=== PATIENT | male | born 1955 | race Caucasian/White ===

== ENCOUNTER 2018-10-29 11:55 | Emergency (ER) | payer MEDICAID ==
[2018-10-29] MEDS ORDERED: PROPARACAINE 0.5% OPHTH DROPS 15 ML EACHEYE STA (14:16)
[2018-10-29] MEDS ORDERED: DEXAMETHASONE 10 MG/ML VIAL PO STA (14:16)
[2018-10-29] MEDS ORDERED: IPRATROPIUM/ALBUTEROL 3 ML NEB INH STA (14:17)
--- NOTE | 2018-10-29 14:19 | ED Physician Documentation ---
PD HPI URI - Stated complaint Stated Complaint: EYE IRRITATION/SORE THROAT - Chief complaint Chief Complaint: Heent - History obtained from History obtained from: Patient - History of Present Illness Timing - onset: How many days ago (4) Timing duration: Days (4) Timing details: Gradual onset, Still present Associated symptoms: Ear pain, Nasal congestion, Rhinorrhea, Sinus pain, Sore throat, Dry cough, Dyspnea, Other (eye pain irritation) Contributing factors: Sick contact Improves by: Rest, Medication Similar symptoms before: Has not had sx before Recently seen: Not recently seen - Additional information Additional information: 63-year-old male has developed developed some eye irritation about 4 days ago this was followed by a cough and congestion he has some swelling to both of his eyes and some matting to them. He has developed some shortness of breath with this he has had used an inhaler before and he is not using it right now. Review of Systems Constitutional: reports: Myalgias, Fatigue. denies: Fever Eyes: reports: Discharge, Irritation. denies: Decreased vision Ears: reports: Ear pain Nose: reports: Rhinorrhea / runny nose, Congestion Throat: reports: Sore throat Cardiac: denies: Chest pain / pressure, Palpitations Respiratory: reports: Dyspnea, Cough GI: denies: Vomiting PD PAST MEDICAL HISTORY - Present Medications Home Medications: Ambulatory Orders Medication Instructions Recorded Confirmed Albuterol Sulf [Ventolin Hfa 1 - 2 puffs INH Q4HR PRN #1 inhaler 10/29/18 Inhaler] Amox/Clav 875/125 [Augmentin] 1 each PO Q12H #20 tablet 10/29/18 predniSONE [Deltasone] 10 mg PO ONCE #26 tablet 10/29/18 - Allergies Allergies/Adverse Reactions: Allergies Allergy/AdvReac Type Severity Reaction Status Date / Time codeine Allergy Rash Verified 10/29/18 12:40 hydrocodone Allergy Rash Verified 10/29/18 12:40 PD ED PE NORMAL - Vitals Vital signs reviewed: Yes (hypertensive ) - General General: Alert and oriented X 3, No acute distress, Well developed/nourished - HEENT HEENT: Atraumatic, PERRL, EOMI, Other (both TM's are markedly inflamed with loss of landmarks. The pharynx is with swelling and erythema to the uvula. There is no exudate. 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, No motor deficit, No sensory deficit, Normal speech Eye Opening: Spontaneous Motor: Obeys Commands Verbal: Oriented GCS Score: 15 - Psych Psych: Normal mood, Normal affect Results - Vitals Vitals: Vital Signs - 24 hr 10/29/18 10/29/18 12:38 14:33 Temperature 36.8 C Heart Rate 80 98 Respiratory 20 16 Rate Blood Pressure 131/87 H O2 Saturation 95 Oxygen O2 Source Room air - Rads (name of study) chest 2 veiw Radiology: Prelim report reviewed (Impression: Normal two-view chest radiography.), EMP read indepedently, See rad report PD MEDICAL DECISION MAKING - ED course Complexity details: reviewed results, re-evaluated patient, considered differential, d/w patient ED course: 63 y/o male with a cough and congestion has a lot of swelling to his eyes and drainage and he has OM on exam that looks like it would hurt. He is administered decadron and a duoneb as well as drops of proparicaine to the eyes. He has marked improvement with treatment and can now open his eyes and breath. Departure - Departure Disposition: 01 Home, Self Care Clinical Impression: Otitis media Qualifiers: Otitis media type: suppurative Chronicity: acute Laterality: bilateral Recurrence: not specified as recurrent Spontaneous tympanic membrane rupture: without spontaneous rupture Qualified Code(s): H66.003 - Acute suppurative otitis media without spontaneous rupture of ear drum, bilateral Reactive airway disease Qualifiers: Asthma severity: mild Asthma persistence: intermittent Asthma complication type: with acute exacerbation Qualified Code(s): J45.21 - Mild intermittent asthma with (acute) exacerbation Condition: Stable Instructions: ED Reactive Airway Disease, ED Otitis Media Acute Adult Follow-Up: Bon Hagen PA-C [Primary Care Provider] - Prescriptions: Albuterol Sulf [Ventolin Hfa Inhaler] 1 - 2 puffs INH Q4HR PRN #1 inhaler PRN Reason: Shortness Of Air/Wheezing Amox/Clav 875/125 [Augmentin] 1 each PO Q12H #20 tablet predniSONE [Deltasone] 10 mg PO ONCE #26 tablet
--- NOTE | 2018-10-29 15:32 | XRAY Report ---
Reason: cough reduced air movement] Procedure Date: 10/29/2018 Accession Number: [id number] / [id number] Procedure: XR - Chest 2 View X-Ray CPT Code: 74679 FULL RESULT: EXAM: CHEST RADIOGRAPHY EXAM DATE: 10/29/2018 03:18 PM. CLINICAL HISTORY: Cough reduced air movement. COMPARISON: None. TECHNIQUE: 2 views. FINDINGS: Lungs/Pleura: No localized infiltrate, consolidation, effusion, or pneumothorax. Mediastinum: Heart and mediastinal contours are unremarkable. Other: None. IMPRESSION: Normal 2-view chest radiography. RADIA
[2018-10-29 15:52] VITALS: BP 119/82
== END 2018-10-29 15:50 | disposition home or self-care (01) ==
LOC: ED 11:55
DX: H66.003 Acute suppurative otitis media without spontaneous rupture of ear drum, bilateral (principal); J45.21 Mild intermittent asthma with (acute) exacerbation; H57.89 Other specified disorders of eye and adnexa
CPT/HCPCS: 71046; 94640; 99283; J3490

== ENCOUNTER 2018-11-13 14:19 | Outpatient (CLI) | payer MEDICAID | END 2018-11-13 23:59 | disposition home or self-care (01) | LOC: RT.N 14:19 | PROVIDERS: ATTEND Physician Assistant Medical | DX: R07.9 Chest pain, unspecified (principal) | CPT/HCPCS: 93005 ==

== ENCOUNTER 2019-05-24 17:55 | Outpatient (CLI) | payer OTHER ==
--- NOTE | 2019-05-26 08:34 | MRI Report ---
Reason: LT SHOULDER PAIN Procedure Date: 05/24/2019 Accession Number: [id number] / [id number] Procedure: MRI - Shoulder LT W/O CPT Code: FULL RESULT: EXAM: LEFT SHOULDER MRI WITHOUT CONTRAST EXAM DATE: 05/24/2019 06:39 PM. CLINICAL HISTORY: Left shoulder pain COMPARISON: None. TECHNIQUE: Multiplanar, multisequence T1-weighted and fluid-sensitive sequences of the shoulder without contrast. Other: None. FINDINGS: Acromioclavicular Region: The acromion is type II. Small foci of subchondral edema at the distal clavicle. No significant osteophyte formation. The coracoacromial and coracoclavicular ligaments are intact. Subacromial-subdeltoid bursitis. Glenohumeral Region: No subluxation. Small effusion. Small foci of subchondral edema at the inferior glenoid, with presumed overlying full-thickness cartilage fissuring. Humeral articular cartilage is intact. The glenohumeral ligaments and joint capsule are unremarkable. Bone Marrow: No fractures. No osseous lesions. Labrum: Intermediate signal undermines the base of the labrum circumferentially, with paralabral cyst formation at the anterior-inferior glenoid rim. Musculature/Rotator Cuff: Moderate supraspinatus tendinopathy, with a 3 x 3 mm intrasubstance tear of the central fibers of the footprint. The infraspinatus and teres minor muscles and tendons are normal. Partial thickness articular sided tear of the cranial fibers of the subscapularis tendon with moderate superimposed tendinosis. No edema or fatty atrophy. Biceps Tendon: Medial subluxation of the long head biceps tendon from the bicipital groove with partial tearing and moderate tendinosis of the intra-articular long head biceps tendon. Other: The subcutaneous tissues are unremarkable. IMPRESSION: 1. 3 x 3 mm intrasubstance tear of the distal supraspinatus tendon, superimposed on moderate insertional tendinosis. 2. Circumferential tearing of the glenoid labrum, with paralabral cyst formation at the anterior-inferior rim of the glenoid. 3. Medial subluxation of the long head biceps tendon from the bicipital groove with partial tearing and moderate tendinosis of the intra-articular long head biceps tendon. 4. Small foci of subchondral edema at the inferior glenoid, with presumed overlying cartilage fissuring. No discrete cartilage defect is visualized. Small marginal osteophytes of the humeral head also suggests early osteoarthritis. Small effusion. 5. Subacromial-subdeltoid bursitis. RADIA
== END 2019-05-24 17:56 | disposition home or self-care (01) ==
LOC: DI 17:55
PROVIDERS: ATTEND Internal Medicine
DX: M75.102 Unspecified rotator cuff tear or rupture of left shoulder, not specified as traumatic (principal); S43.492A Other sprain of left shoulder joint, initial encounter; S46.112A Strain of muscle, fascia and tendon of long head of biceps, left arm, initial encounter; R60.0 Localized edema; M75.52 Bursitis of left shoulder

== ENCOUNTER 2019-11-21 19:28 | Emergency (ER) | payer OTHER ==
[2019-11-21 19:39] VITALS: BP 119/79
[2019-11-21] MEDS ORDERED: BUFFERED LIDOCAINE 10 ML SYRINGE SUBQ STA (20:05)
--- NOTE | 2019-11-21 20:08 | ED Physician Documentation ---
PD HPI UPPER EXT INJURY - Stated complaint Stated Complaint: LT FINGER LAC/INJ - Chief complaint Chief Complaint: Laceration - History obtained from History obtained from: Patient (Pleasant 64-year-old male was at home this evening using a Knife to cut a box he left with a brief moment and the razor blade cut his left index finger on the lateral aspect at the knuckle joint. Patient states his last tetanus was within the last 7 years. 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) Timing - details: Abrupt onset Pain level now: 3 Improved by: Immobilization Worsened by: Moving, Palpating Associated symptoms: No: Weakness, Numbness, Tingling Review of Systems Constitutional: reports: Reviewed and negative Cardiac: reports: Reviewed and negative Respiratory: reports: Reviewed and negative Skin: reports: Laceration (s) (Left index finger) PD PAST MEDICAL HISTORY - Past Medical History Past Medical History: Yes Cardiovascular: Hypertension, Other Psych: Depression, Anxiety - Past Surgical History Past Surgical History: Yes General: Appendectomy Ortho: Other HEENT: Tonsil/Adenoidectomy, Other - Present Medications Home Medications: Ambulatory Orders Medication Instructions Recorded Confirmed Cephalexin [Keflex] 500 mg PO TID #15 capsule 11/21/19 Losartan Potassium 100 mg PO DAILY 11/21/19 11/21/19 Vilazodone HCl [Viibryd] 40 mg PO DAILY 11/21/19 11/21/19 atenoloL [Atenolol] 25 mg PO DAILY 11/21/19 11/21/19 hydroCHLOROthiazide 25 mg PO DAILY 11/21/19 11/21/19 [Hydrochlorothiazide] - Allergies Allergies/Adverse Reactions: Allergies Allergy/AdvReac Type Severity Reaction Status Date / Time codeine Allergy Rash Verified 11/21/19 19:36 hydrocodone Allergy Rash Verified 11/21/19 19:36 - Social History Does the pt smoke?: No Smoking Status: Never smoker Does the pt drink ETOH?: No Does the pt have substance abuse?: No - Immunizations Immunizations are current?: Yes - POLST Patient has POLST: No PD ED PE NORMAL - General General: Alert and oriented X 3, No acute distress, Well developed/nourished - HEENT HEENT: PERRL - Cardiac Cardiac: RRR - Respiratory Respiratory: No respiratory distress - Derm Derm: Other (laceration to left index finger, lateral aspect at the PIP joint. ) Results - Vitals Vitals: Vital Signs - 24 hr 11/21/19 19:36 Temperature 36.3 C L Heart Rate 73 Respiratory 18 Rate Blood Pressure 119/79 O2 Saturation 98 Oxygen O2 Source Room air Procedures - Laceration (location) Finger left Lateral Length in cm: 3 Wound type: Flap Neurovascular status: Sensory intact, Motor intact, Vascular intact Tendon involvement: Tendon intact. No: Tendon Injury Anesthesia: Lidocaine 2% Wound Preparation: Chlorhexadine, Irrigated copiously NS, Wound explored, To the base. No: FB identified Skin layer closure: Nylon, Size #-0 - enter number (5), Sutures - enter # (7) Other: Patient tolerated well, No complications, Neurovascular intact, Dressing applied, Tetanus UTD Complexity: Simple PD MEDICAL DECISION MAKING - ED course Complexity details: d/w patient Departure - Departure Disposition: 01 Home, Self Care Clinical Impression: Laceration Condition: Good Instructions: ED Laceration All, ED Laceration Hand Prescriptions: Cephalexin [Keflex] 500 mg PO TID #15 capsule Comments: Keep your finger in a finger splint and this dressing for the first 24 hours. He may then take the original dressing off make sure that you keep the wound site clean and covered at all times wearing the finger splint for at least the first 5 to 7 days to prevent reopening. He can apply a small amount of antibiotic ointment under the dressing to the sutures to keep them moist and loose. Every day you should be moving the suture knot from one side of the laceration to the other side. This will make it much easier for the sutures to come out. Sutures need to come out in 10 to 14 days. He can have this done with your primary care provider's office. Or you may return to the ER to have this done. I prescribed you antibiotics to take Flomax 5 days, this is to prevent an infection into the joint of your left index finger under the laceration. If you notice signs of infection developing, redness going up your finger in your hand, increasing swelling after 2 to 3 days, drainage purulent out of the laceration, or fevers return to the ER follow-up with your primary care provider for further evaluation. He may take Tylenol and or ibuprofen for pain control.
[2019-11-21] MEDS ORDERED: BACITRACIN ZINC OINT 1 PACKET TOP STA (20:31)
== END 2019-11-21 20:45 | disposition home or self-care (01) ==
LOC: ED 19:28
DX: S61.211A Laceration without foreign body of left index finger without damage to nail, initial encounter (principal); W26.0XXA Contact with knife, initial encounter; Y93.89 Activity, other specified; Y92.009 Unspecified place in unspecified non-institutional (private) residence as the place of occurrence of the external cause; I10 Essential (primary) hypertension
CPT/HCPCS: 12002; 99283; 99284; A9270

== ENCOUNTER 2020-04-11 19:48 | Emergency (ER) | payer OTHER ==
[2020-04-11] MEDS ORDERED: METOPROLOL 5 MG/5 ML VIAL IVP STA (20:06)
[2020-04-11] MEDS ORDERED: ASPIRIN CHEW 81 MG TABLET PO STA (20:06)
--- NOTE | 2020-04-11 20:07 | ED Physician Documentation ---
PD HPI CHEST PAIN - Stated complaint Stated Complaint: RHR, SHAKING, BAKER - Chief complaint Chief Complaint: Cardiac - History obtained from History obtained from: Patient - Additional information Additional information: He has been having trouble [facility] He ran about about 4 days ago. Today he noticed his heart rate was high and about an hour ago got a mild substernal chest pain that made him sweaty but not short of breath or nauseous. Review of Systems Constitutional: denies: Fever, Myalgias Nose: denies: Rhinorrhea / runny nose, Congestion Throat: denies: Dental pain / toothache Cardiac: denies: Palpitations, Pedal edema, Calf pain Respiratory: denies: Dyspnea, Cough, Hemoptysis, Wheezing GI: denies: Abdominal Pain PD PAST MEDICAL HISTORY - Past Medical History Cardiovascular: Hypertension, Other Psych: Depression, Anxiety - Past Surgical History Past Surgical History: Yes General: Appendectomy Ortho: Other HEENT: Tonsil/Adenoidectomy, Other - Present Medications Home Medications: Ambulatory Orders Medication Instructions Recorded Confirmed Cephalexin [Keflex] 500 mg PO TID #15 capsule 11/21/19 Losartan Potassium 100 mg PO DAILY 11/21/19 11/21/19 Vilazodone HCl [Viibryd] 40 mg PO DAILY 11/21/19 11/21/19 atenoloL [Atenolol] 25 mg PO DAILY 11/21/19 11/21/19 hydroCHLOROthiazide 25 mg PO DAILY 11/21/19 11/21/19 [Hydrochlorothiazide] atenoloL [Tenormin] 25 mg PO DAILY #30 tablet 04/11/20 - Allergies Allergies/Adverse Reactions: Allergies Allergy/AdvReac Type Severity Reaction Status Date / Time codeine Allergy Rash Verified 04/11/20 19:59 hydrocodone Allergy Rash Verified 04/11/20 19:59 - Social History Does the pt smoke?: No Smoking Status: Never smoker Does the pt drink ETOH?: No Does the pt have substance abuse?: No - Immunizations Immunizations are current?: Yes - POLST Patient has POLST: No PD ED PE NORMAL - Vitals Vital signs reviewed: Yes - General General: Alert and oriented X 3, No acute distress - HEENT HEENT: PERRL, EOMI - Neck Neck: Supple, no meningeal sign, No bony TTP - Cardiac Cardiac: Other (Tachycardiac, regular, no murmur) - Respiratory Respiratory: No respiratory distress, Clear bilaterally - Abdomen Abdomen: Non tender - Extremities Extremities: No edema, No calf tenderness / cord - Neuro Neuro: Alert and oriented X 3, Normal speech Results - Vitals Vitals: Vital Signs - 24 hr 04/11/20 04/11/20 04/11/20 19:59 20:02 20:31 Temperature 37.3 C Heart Rate 102 H 84 Respiratory 16 17 Rate Blood Pressure 119/98 H 123/83 H Blood Pressure 115/84 H [Left] Blood Pressure 124/90 H [Right] O2 Saturation 100 96 04/11/20 21:20 Temperature 36.6 C Heart Rate 87 Respiratory 20 Rate Blood Pressure 115/82 H Blood Pressure [Left] Blood Pressure [Right] O2 Saturation 96 Oxygen O2 Source Room air - EKG (time done) 1953 Rate: Rate (enter#) (104) Rhythm: Sinus tachycardia [place]: Normal Intervals: Normal PA QRS: Normal Ischemia: Normal ST segments - Labs Labs: Laboratory Tests 04/11/20 04/11/20 04/11/20 20:15 20:15 20:15 WBC 7.3 RBC 4.75 Hgb 13.9 L Hct 42.3 MCV 89.1 MCH 29.3 MCHC 32.9 RDW 14.0 Plt Count 214 MPV 10.5 Neut # (Auto) 4.2 Lymph # (Auto) 2.2 Petroleum # (Auto) 0.7 Eos # (Auto) 0.2 Baso # (Auto) 0.0 Absolute Nucleated RBC 0.00 Nucleated RBC % 0.0 Sodium 142 Potassium 3.6 Chloride 106 Carbon Dioxide 28 Anion Gap 8.0 BUN 24 H Creatinine 1.2 Estimated GFR (MDRD) 61 L Glucose 126 H Calcium 9.8 Total Bilirubin 0.5 AST 30 ALT 39 Alkaline Phosphatase 55 Troponin I High Sens 5.4 Total Protein 7.5 Albumin 4.4 Globulin 3.1 Albumin/Globulin Ratio 1.4 Lipase 36 - Rads (name of study) 1v chest Radiology: EMP read contemporaneously (normal) PD MEDICAL DECISION MAKING - ED course ED course: 64-year-old gentleman of his already known at the cardiac and with mild gendered EKG without ischemic changes and troponin negative. He felt completely back to normal after IV metoprolol. And his heart rate down into the 80s. Departure - Departure Disposition: 01 Home, Self Care Clinical Impression: Medication withdrawal Chest pain Qualifiers: Chest pain type: precordial pain Qualified Code(s): R07.2 - Precordial pain Condition: Good Record reviewed to determine appropriate education?: Yes Instructions: ED Chest Pain NonCardiac Prescriptions: atenoloL [Tenormin] 25 mg PO DAILY #30 tablet Comments: If you develop recurrent chest pain, Shortness of breath or other concerning symptoms please return immediately for reevaluation. Follow-up with your doctor for results of your normal. Discharge Date/Time: 04/11/20 21:21
[2020-04-11 20:25] LABS: BASOPHILS % (AUTO) 0.4 %; EOSINOPHILS # (AUTO) 0.2 10^3/uL (0.0-0.7); EOSINOPHILS % (AUTO) 2.3 %; HGB - HEMOGLOBIN 13.9 g/dL (14.0-18.0); LYMPHOCYTES # (AUTO) 2.2 10^3/uL (1.5-3.5); LYMPHOCYTES % (AUTO) 29.9 %; MEAN CORPUSCULAR HEMOGLOBIN 29.3 pg (27.0-31.0); MEAN CORPUSCULAR HGB CONC 32.9 g/dL (32.0-36.0); MEAN CORPUSCULAR VOLUME 89.1 fL (80.0-94.0); MEAN PLATELET VOLUME 10.5 fL (7.4-11.4); MONOCYTES # (AUTO) 0.7 10^3/uL (0.0-1.0); MONOCYTES % (AUTO) 9.6 %; NEUTROPHILS # (AUTO) 4.2 10^3/uL (1.5-6.6); NEUTROPHILS % (AUTO) 57.5 %; PLT - PLATELET COUNT 214 10^3/uL (130-450); RED BLOOD COUNT 4.75 10^6/uL (4.70-6.10); WHITE BLOOD COUNT 7.3 x10^3/uL (4.8-10.8)
--- NOTE | 2020-04-11 20:33 | XRAY Report ---
PROCEDURE: Chest 1 View X-Ray INDICATIONS: Chest pain TECHNIQUE: One view of the chest was acquired. COMPARISON: Chest x-ray 02/28/2019 FINDINGS: Surgical changes and devices: None. Lungs and pleura: No pleural effusions or pneumothorax. Lungs are clear. Mediastinum: Mediastinal contours appear normal. Heart size is normal. Bones and chest wall: No suspicious bony lesions. Overlying soft tissues appear unremarkable. IMPRESSION: No acute pulmonary process. Reviewed by: Jaelyn Cota MD on 04/11/2020 8:31 PM PDT Approved by: Jaelyn Cota MD on 04/11/2020 8:31 PM PDT Station ID: [id number]
[2020-04-11] MEDS ORDERED: atenoloL 25 MG TABLET PO STA (20:36)
[2020-04-11 20:48] LABS: ALBUMIN 4.4 g/dL (3.2-5.5); ALBUMIN/GLOBULIN RATIO 1.4 (1.0-2.2); BILIRUBIN,TOTAL 0.5 mg/dL (0.2-1.0); CALCIUM 9.8 mg/dL (8.5-10.3); CREATININE 1.2 mg/dL (0.6-1.2); TOTAL PROTEIN 7.5 g/dL (6.7-8.2)
[2020-04-11 21:22] VITALS: BP 115/82
== END 2020-04-11 21:21 | disposition home or self-care (01) ==
LOC: ED 19:48
DX: F19.230 Other psychoactive substance dependence with withdrawal, uncomplicated (principal); R07.2 Precordial pain; R00.0 Tachycardia, unspecified
CPT/HCPCS: 36415; 71045; 80053; 83690; 84484; 85025; 93005; 96374; 99284; A9270

== ENCOUNTER 2021-02-26 09:04 | Outpatient (CLI) | payer OTHER ==
--- NOTE | 2021-02-26 15:48 | Ultrasound Report ---
PROCEDURE: Abdomen Limited INDICATIONS: ABN LIVER FUNCTION TESTS TECHNIQUE: Real-time focused scanning was performed of the abdomen, with image documentation. COMPARISON: None. FINDINGS: The liver demonstrates increased hepatic echogenicity with coarse sonographic echotexture consistent with fatty infiltration. There is a small cyst within the inferior right hepatic lobe measuring up to 1.2 x 0.8 x 0.8 cm. No intra or extrahepatic biliary ductal dilatation. The common bile duct measures up to approximately 0.4 cm. The visualized pancreas appears unremarkable sonographically. The pancreatic tail was not well visual ized. Right kidney measures 10 cm. No hydronephrosis. There are areas of renal cortical thinning consistent with sequelae with lobulation or scarring from prior infection, trauma, or infarcts. IMPRESSION: 1. Increased hepatic echogenicity compatible steatosis. 2. No biliary duct dilatation. Reviewed by: Amandeep Betancur MD on 02/26/2021 3:46 PM PDT Approved by: Amandeep Betancur MD on 02/26/2021 3:46 PM PDT Station ID: [id number]
== END 2021-02-26 09:05 | disposition home or self-care (01) ==
LOC: DI 09:04
PROVIDERS: ATTEND Internal Medicine
DX: R93.2 Abnormal findings on diagnostic imaging of liver and biliary tract (principal)